=== PATIENT | female | born 1965 | race African-American/Black ===

== ENCOUNTER → 2024-03-29 10:55 | Outpatient (REF) | payer OTHER, SELFPAY | LOC: HWWDC 10:55 | PROVIDERS: ATTENDING PHYSICIAN Nurse Practitioner Adult Health; FAMILY PHYSICIAN Physician Assistant Medical | DX: Z12.31 Encounter for screening mammogram for malignant neoplasm of breast (principal) | CPT/HCPCS: 77063; 77067 ==

== ENCOUNTER → 2024-04-13 09:19 | Outpatient (REF) | payer OTHER, SELFPAY | LOC: WDC 09:19 | PROVIDERS: ATTENDING PHYSICIAN Nurse Practitioner Adult Health; FAMILY PHYSICIAN Physician Assistant Medical | DX: R92.8 Other abnormal and inconclusive findings on diagnostic imaging of breast (principal) | CPT/HCPCS: 76642 ==

== ENCOUNTER 2024-04-30 09:00 | Emergency (ER) | payer OTHER, SELFPAY ==
[2024-04-30 09:20] VITALS: BP 100/66
[2024-04-30 10:08] LABS: % Basophils 0.5 % (0-2); % Eosinophils 2.3 % (0-6); % Immature Granulocytes 0.1 % (0-0.5); % Lymphocytes 40.7 % (20.5-51.1); % Monocytes 8.1 % (1.7-9.3); % Neutrophils 48.3 % (42.2-75.2); Absolute Eosinophils 0.2 10^3/uL (0-0.7); Absolute Lymphocytes 3.1 10^3/uL (1.2-3.4); Absolute Monocytes 0.6 10^3/uL (0.1-0.6); Absolute Neutrophils 3.6 10^3/uL (1.4-6.5); Hematocrit 41.9 % (37.0-47.0); Hemoglobin 13.8 g/dL (12.0-16.0); Mean Corp Hgb Conc. 32.9 g/dL (33.0-37.0); Mean Corpuscular Hgb 29.6 pg (27.0-31.0); Mean Corpuscular Volume 89.7 fL (81.0-99.0); Mean Platelet Volume 10.2 fL (7.4-10.4); Nucleated Red Blood Cells % 0 %; Platelet Count 267 10^3/uL (130-400); Red Blood Cell Count 4.67 10^6/uL (4.20-5.40); Red Cell Dist. Width 13.5 % (11.5-14.5); White Blood Cell Count 7.5 10^3/uL (4.8-10.8)
[2024-04-30 10:14] LABS: ALT (SGPT) 16 U/L (0-35); AST (SGOT) 22 U/L (14-36); Albumin 4.4 g/dl (3.5-5.0); Alkaline Phosphatase 52 U/L (38-126); Blood Urea Nitrogen 14 mg/dl (7-17); Calcium 9.4 mg/dl (8.4-10.2); Carbon Dioxide 30 mmol/L (22-30); Chloride 102 mmol/L (98-107); Glucose 87 mg/dl (70-99); Potassium 4.8 mmol/L (3.5-5.1); Sodium 138 mmol/L (135-145); Total Bilirubin 0.3 mg/dl (0.2-1.3); Total Protein 7.6 g/dl (6.3-8.2); eGFR > 60.00
[2024-04-30 10:17] LABS: Troponin I < 0.012 ng/ml
--- NOTE | 2024-04-30 11:47 | ED.GENMED ---
History of Present Illness
General
Chief Complaint: Chest Pain
Source: patient
Exam Limitations: none
Time Seen by Provider: 04/30/24 11:22
Nursing documentation reviewed up to this point in time: agreed with
History of Present Illness
History of Present Illness:
59-year-old female presenting to the emergency department today with concerns of chest heaviness over the past few weeks with now radiation to left upper back shoulder and arm with a tingling sensation. She went upper with cardiology for follow-up
they told her to go to the ER for assessment. Denies any nausea vomiting recent illness.
Review of Systems
Review of Systems
Allergies reviewed?: Yes
All Other Systems: ROS reviewed and negative except as documented in HPI and ROS
Phy Exam
Physical Exam
Physical Exam:
GENERAL: Alert , in no apparent distress
EYE: pupils equal and reactive
NECK: Supple, no significant adenopathy.
ENT: o/p clr, mmm.
CARDIAC: Regular rate and rhythm .
LUNGS: Clear breath sounds bilaterally, no acute respiratory distress, no wheezes/rales/rhonchi
ABDOMEN: Soft, without focal tenderness, no r/g, no cvat
NEUROLOGICAL: Alert and oriented, no focal neuro deficits
SKIN: Warm and dry, skin intact.
MUSCULOSKELETAL: No edema, well perfused.
PSYCH: Normal and appropriate interaction.
Scores
Heart Score for Chest Pain Patients
STEMI patient?: No
History: Slightly or Non-Suspicious
ECG: Normal
Age: </= 45 years
Risk Factors: No Risk Factors
Troponin: </= Normal Limit
Heart Score for Chest Pain Patients: 0
Heart Score Risk: 2.5% MACE over next 6 weeks
Course
Orders/Labs/Results
Orders:
Orders
04/30/24 09:06
EKG [Electrocardiogram (*1)] Urgent
Reason for Study: Chest Pain
EKG- Treatment ONCE
04/30/24 09:32
Complete Blood Count/With Diff Urgent
Comprehensive Metabolic Panel Urgent
Troponin I Urgent
04/30/24 10:20
Chest [CR Chest - 2 Views ] Urgent
Comment:
Reason For Exam: cp
Abnormal Lab Results
04/30/24
09:32
MCHC 32.9 L g/dL
(33.0-37.0)
04/30/24 09:32
04/30/24 09:32
Vital Signs
Initial and Last Documented VS:
Initial Vital Signs
Temp Pulse Resp BP Pulse Ox
97.6 F 64 18 100/66 100
04/30/24 09:20 04/30/24 09:20 04/30/24 09:20 04/30/24 09:20 04/30/24 09:20
Last Documented Vital Signs
Temp Pulse Resp BP Pulse Ox
97.6 F 64 16 100/66 100
04/30/24 09:20 04/30/24 09:20 04/30/24 12:00 04/30/24 09:20 04/30/24 09:20
MDM/Problems Addressed
MDM/Problems Addressed:
59-year-old female presenting to the emergency department today with concerns of chest heaviness radiation to left shoulder left arm with some tingling. Ongoing for a few weeks. Vital signs on arrival normal EKG normal troponin negative labs
unremarkable. Here patient well-appearing no distress claims that symptoms are not severe today worsened symptoms were a few days ago. Troponin negative making ACS very unlikely. Chest x-ray normal, read by me. Symptoms reproducible with
movement. Potential radiculopathy. Advised her close outpatient cardiology and primary care follow-up otherwise stable for outpatient management return precautions given.
*Critical Care Note
Total Time (30-74mins, 75-104mins- exclusive of procedures): Not Applicable
ED Attending Note
-
Portions of this chart may have been created with voice recognition software.� Occasional wrong word or��sound alike� substitutions may have occurred due to the inherent limitations of voice recognition software.
Discharge Plan
Departure
Patient Disposition: Home (Routine Discharge)
Date of Disposition: 04/30/24
Time of Disposition: 12:34
Patient with high blood pressure during this ER visit?: No
Condition: Good
Covid-19: Not Applicable
Discharge Problem:
Left shoulder pain, Radicular pain
Instructions: Radiculopathy of the neck and back (including sciatica)
Referrals:
Fawn Bryan PA-C [Family Provider] -
Shoshana Hernandes MD [Active] - Follow up in 5-7 days
Activity Restrictions/Additional Instructions:
You came to the emergency department today with concerns of chest shoulder and arm discomfort. Here you have a reassuring assessment. This could be from radiculopathy. 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 Return
to the emergency department for any worsening, new or concerning symptoms.
Interventions
Interventions:
*Risk Screen - Suicide Last Done: 04/30/24 11:49
*General Assessment Last Done: 04/30/24 11:49
*Neglect/Abuse Screening Last Done: 04/30/24 11:49
ED- Fall Risk Assessment Last Done: 04/30/24 11:49
ED- Cardiac Assessment Last Done: 04/30/24 11:49
Discharge Date and Time
Print Language: LAO
[2024-04-30 12:45] VITALS: BP 115/78
== END 2024-04-30 12:46 | disposition home or self-care (01) ==
LOC: EMR 09:00
PROVIDERS: EMERGENCY PHYSICIAN Emergency Medicine; FAMILY PHYSICIAN Physician Assistant Medical
DX: M54.10 Radiculopathy, site unspecified (principal); M25.512 Pain in left shoulder
CPT/HCPCS: 99285; 71046; 80053; 84484; 85025; 93005

== ENCOUNTER → 2024-08-25 14:36 | Outpatient (REF) | payer OTHER, SELFPAY | LOC: WDC 14:36 | PROVIDERS: ATTENDING PHYSICIAN Nurse Practitioner Adult Health; FAMILY PHYSICIAN Physician Assistant Medical | DX: R92.8 Other abnormal and inconclusive findings on diagnostic imaging of breast (principal) | CPT/HCPCS: 76642 ==

== ENCOUNTER 2024-09-24 06:20 | Day surgery (SDC) | payer OTHER, SELFPAY | END 2024-09-24 08:39 | disposition home or self-care (01) | LOC: GI 06:20 | PROVIDERS: ATTENDING PHYSICIAN Internal Medicine Gastroenterology; FAMILY PHYSICIAN Physician Assistant Medical | DX: Z12.11 Encounter for screening for malignant neoplasm of colon (principal); K64.8 Other hemorrhoids; K57.30 Diverticulosis of large intestine without perforation or abscess without bleeding; K63.5 Polyp of colon; Z86.0100 Personal history of colon polyps, unspecified | CPT/HCPCS: 45380; 88305 ==

== ENCOUNTER → 2025-02-24 13:50 | Outpatient (REF) | payer OTHER, SELFPAY | LOC: WDC 13:50 | PROVIDERS: ATTENDING PHYSICIAN Nurse Practitioner Adult Health; FAMILY PHYSICIAN Physician Assistant Medical | DX: R92.8 Other abnormal and inconclusive findings on diagnostic imaging of breast (principal) | CPT/HCPCS: 76642 ==

== ENCOUNTER → 2025-02-25 07:55 | Outpatient (REF) | payer SELFPAY | LOC: HWRAD 07:55 | PROVIDERS: ATTENDING PHYSICIAN Physician Assistant Medical | DX: Z12.6 Encounter for screening for malignant neoplasm of bladder (principal) | CPT/HCPCS: 75571 ==

== ENCOUNTER → 2025-04-08 08:02 | Outpatient (REF) | payer OTHER, SELFPAY | LOC: HWWDC 08:02 | PROVIDERS: ATTENDING PHYSICIAN Nurse Practitioner Adult Health; FAMILY PHYSICIAN Physician Assistant Medical | DX: Z12.31 Encounter for screening mammogram for malignant neoplasm of breast (principal) | CPT/HCPCS: 77063; 77067 ==